=== PATIENT | male | born 1975 | race Hispanic/Latino ===

== ENCOUNTER → 2024-10-04 | Day surgery (SDC) | payer OTHER ==
[~2024-10-04] MED LIST: FENTANYL CITRATE/PF 100MCG/2 ML INJ ONE; FINASTERIDE5 MG PO; HYOSCYAMINE SULFATE 0.5 MG/ML INJ ONE; LIDOCAINE HCL 2% LOCAL INJ 5 ML SDV VIAL INJ ONE; LORATADINE10 MG PO; MINOXIDIL; MULTI-VITAMIN1 EACH PO; ONDANSETRON HCL INJ 2MG/ML 2ML 2 MG/ML VIAL ONE; PROPOFOL IV EMULSION 50 ML IV ONE; SAW PALMETTO450 MG; TYLENOL325 MG PO; VITAMIN C1000 MG PO
[2024-10-04] MEDS: LACTATED RINGER'S 1,000 ML ONE (10:28)
[2024-10-04 12:27] VITALS: TEMP 97.7
[2024-10-04 13:00] VITALS: BP 121/74; PULSE 81; RESP 16; O2SAT 99
== END | disposition home or self-care (01) ==
LOC: OR 09:31
PROVIDERS: ATTEND Internal Medicine Gastroenterology
DX: Z12.11 Encounter for screening for malignant neoplasm of colon (principal); K62.1 Rectal polyp; D12.2 Benign neoplasm of ascending colon; D12.5 Benign neoplasm of sigmoid colon; D12.3 Benign neoplasm of transverse colon; K64.8 Other hemorrhoids; Z01.810 Encounter for preprocedural cardiovascular examination
CPT/HCPCS: 45380; 45384; 45385; 93005; J1980; J2003; J2405; J2704; J3010; J7121; 45378; 45381

== ENCOUNTER → 2024-10-16 | Outpatient (REF) | payer OTHER ==
[~2024-10-16] MED LIST changes: +DIATRIZOATE MEGL/DIATRIZOA SOD 30 ML BTL PO ONE; -FENTANYL CITRATE/PF 100MCG/2 ML INJ ONE; -HYOSCYAMINE SULFATE 0.5 MG/ML INJ ONE; -LIDOCAINE HCL 2% LOCAL INJ 5 ML SDV VIAL INJ ONE; -ONDANSETRON HCL INJ 2MG/ML 2ML 2 MG/ML VIAL ONE; -PROPOFOL IV EMULSION 50 ML IV ONE
== END ==
LOC: CT 14:40
PROVIDERS: ATTEND Internal Medicine Gastroenterology
DX: K63.9 Disease of intestine, unspecified (principal); K76.89 Other specified diseases of liver
CPT/HCPCS: 74177; Q9963

== ENCOUNTER 2024-11-05 09:22 | Inpatient (IN) | payer OTHER ==
[2024-10-24 12:13] LABS: BASOPHILS % 0.6 % (0.0-1.0); EOSINOPHILS % 3.3 % (0.0-6.0); LYMPHOCYTES % 24.2 % (18.0-39.1); MONOCYTES % 8.4 % (4.4-11.3); NEUTROPHILS % 63.3 % (38.7-80.0); RED CELL DISTRIBUTION WIDTH 12.2 % (11.7-14.4)
[2024-10-24 12:35] LABS: EST GLOMERULAR FILTRATION RATE 112.0 ML/MIN (>=60)
[~2024-11-05] VITALS: Ht 167.6 cm; Wt 63.3 kg
[~2024-11-05 09:22] MED LIST changes: -DIATRIZOATE MEGL/DIATRIZOA SOD 30 ML BTL PO ONE
[2024-11-05] MEDS: LACTATED RINGER'S 1,000 ML ONE (09:53)
[2024-11-05] MEDS ORDERED: FENTANYL CITRATE/PF 100MCG/2 ML INJ ONE ×2 (14:15→14:29)
[2024-11-05] MEDS ORDERED: PROPOFOL IV EMULSION 10 MG/ML 20 ML VIAL ONE (14:15)
[2024-11-05] MEDS ORDERED: LIDOCAINE HCL 2% LOCAL INJ 5 ML SDV VIAL INJ ONE (14:15)
[2024-11-05] MEDS ORDERED: ROCURONIUM BROMIDE 1 ML IV ONE ×2 (14:15→16:08)
[2024-11-05] MEDS ORDERED: MIDAZOLAM HCL 2 MG/2 ML VIAL ONE (14:15)
[2024-11-05] MEDS ORDERED: GLYCOPYRROLATE INJ 0.2 MG/ML VIAL ONE (15:23)
[2024-11-05] MEDS ORDERED: SEVOFLURANE INHAL SOLN 250 ML PEN BTL ONE (16:05)
[2024-11-05] MEDS ORDERED: ONDANSETRON HCL INJ 2MG/ML 2ML 2 MG/ML VIAL ONE (16:25)
[2024-11-05] MEDS ORDERED: SUGAMMADEX SODIUM 200 MG/2 ML VIAL IV ONE (16:26)
[2024-11-05] MEDS ORDERED: ACETAMINOPHEN 1000 MG/100 ML IV PRN (16:30)
[2024-11-05] MEDS ORDERED: NALOXONE HCL INJ 0.4 MG/ML AMP IV PRN (16:30)
[2024-11-05] MEDS ORDERED: ONDANSETRON HCL INJ 2MG/ML 2ML 2 MG/ML VIAL IV PRN (16:30)
[2024-11-05] MEDS: SODIUM CHLORIDE 0.9% 1000ML 1,000 ML IV SCH (16:30)
[2024-11-05] MEDS: SODIUM CHLORIDE 0.9% 250ML IRRIG IR SCH (16:30)
[2024-11-05] MEDS: HYDROMORPHONE 0.2MG/ML-SOD CHL 30ML PCA SYRINGE IV ONE (17:01)
[2024-11-05] MEDS: MEPERIDINE HCL INJ 25 MG/ML VIAL IV ONE ×2 (17:16→17:21)
[2024-11-05 17:30] VITALS: BP 141/85; PULSE 75; RESP 16; TEMP 97.6; O2SAT 100
[2024-11-05 19:19] VITALS: PULSE 97; RESP 16; O2SAT 97
[2024-11-05 19:21] VITALS: BP 148/89; PULSE 97; RESP 18; TEMP 97.9; O2SAT 100
[2024-11-05 20:00] VITALS: BP 148/89; PULSE 97; RESP 18; TEMP 97.9; O2SAT 100
[2024-11-05] MEDS: SODIUM CHLORIDE 0.9% 1000ML 1,000 ML ONE (22:41)
[2024-11-05] MEDS: MEPERIDINE HCL INJ 25 MG/ML VIAL ONE (22:42)
[2024-11-05] MEDS: BUPIVACAINE LIPOSOME/PF 266 MG/20 ML IJ ONE (22:43)
[2024-11-05 22:56] VITALS: BP 145/83; PULSE 95; RESP 20; TEMP 99.2; O2SAT 98
[2024-11-06] VITALS (8 sets, daily range): BP systolic 130–147; BP diastolic 75–79; PULSE 70–78; RESP 18–23; TEMP 97.5–99; O2SAT 98–100
[2024-11-06 05:21] LABS: BASOPHILS % 0.0 % (0.0-1.0); EOSINOPHILS % 0.0 % (0.0-6.0); LYMPHOCYTES % 4.0 % (18.0-39.1); MONOCYTES % 1.9 % (4.4-11.3); NEUTROPHILS % 93.7 % (38.7-80.0); RED CELL DISTRIBUTION WIDTH 12.1 % (11.7-14.4)
[2024-11-06 05:55] LABS: EST GLOMERULAR FILTRATION RATE 107.0 ML/MIN (>=60)
[2024-11-06] MEDS: HYDROMORPHONE 0.2MG/ML-SOD CHL 30ML PCA SYRINGE IV PRN (20:36)
[2024-11-07] VITALS (11 sets, daily range): BP systolic 128–155; BP diastolic 78–81; PULSE 57–73; RESP 18–19; TEMP 97.5–98.6; O2SAT 96–100
[2024-11-07 05:23] LABS: BASOPHILS % 0.1 % (0.0-1.0); EOSINOPHILS % 0.1 % (0.0-6.0); LYMPHOCYTES % 8.6 % (18.0-39.1); MONOCYTES % 8.3 % (4.4-11.3); NEUTROPHILS % 82.5 % (38.7-80.0); RED CELL DISTRIBUTION WIDTH 12.5 % (11.7-14.4)
[2024-11-07 06:06] LABS: EST GLOMERULAR FILTRATION RATE 111.0 ML/MIN (>=60)
[2024-11-07] MEDS: BISACODYL 10 MG SUPP PR ONE (08:22)
[2024-11-07] MEDS: BISACODYL 10 MG SUPP PR SCH (22:52)
[2024-11-08] VITALS (9 sets, daily range): BP systolic 136–165; BP diastolic 77–87; PULSE 53–66; RESP 16–21; TEMP 97.7–98.2; O2SAT 93–100
[2024-11-08 06:45] LABS: BASOPHILS % 0.3 % (0.0-1.0); EOSINOPHILS % 0.7 % (0.0-6.0); LYMPHOCYTES % 12.6 % (18.0-39.1); MONOCYTES % 11.1 % (4.4-11.3); NEUTROPHILS % 75.1 % (38.7-80.0); RED CELL DISTRIBUTION WIDTH 12.5 % (11.7-14.4)
[2024-11-08 07:31] LABS: EST GLOMERULAR FILTRATION RATE 113.0 ML/MIN (>=60)
[2024-11-08] MEDS ORDERED: HYDROMORPHONE 1MG/1ML INJ IV PRN (11:15)
[2024-11-08] MEDS: HYDROCODONE/APAP 7.5MG-325MG 1 EA TAB PO PRN (17:36)
[2024-11-08] MEDS: BISACODYL 10 MG SUPP PR SCH (21:00)
[2024-11-09] VITALS (8 sets, daily range): BP systolic 126–152; BP diastolic 80–93; PULSE 60–80; RESP 18–20; TEMP 97.4–98; O2SAT 98–100
[2024-11-10] VITALS (9 sets, daily range): BP systolic 127–144; BP diastolic 73–93; PULSE 70–86; RESP 18–20; TEMP 97.2–98.6; O2SAT 96–100
[2024-11-10] MEDS: BISACODYL 10 MG SUPP PR PRN (13:19)
== END 2024-11-10 20:20 | disposition home or self-care (01) | DRG 331 ==
LOC: OR 09:22 → PACU V 15:30 → MED/SURG 18:08
PROVIDERS: ADMIT Surgery; ATTEND Surgery
PROC: 0DTF0ZZ Resection of Right Large Intestine, Open Approach (ICD-10-PCS; principal; 2024-11-05 14:39)
DX: R19.09 Other intra-abdominal and pelvic swelling, mass and lump (principal); K63.5 Polyp of colon
CPT/HCPCS: 36415; 80048; 80053; 85025; 88304; 88307; 88309; 94799; J0666; J0694; J2003; J2175; J2250; J2405; J2470; J7030